=== PATIENT | female | born 1995 | race Hispanic/Latino ===

== ENCOUNTER 2018-07-02 01:23 | Emergency (ER) | payer OTHER ==
[~2018-07-02] VITALS: Ht 157.5 cm; Wt 63.5 kg
--- OUTSIDE RECORDS SUMMARY | 2018-07-02 01:26 | XMS REPORT | Summary of Care ---
Author Author [facility] provider scribe Summer Kotlik Organization [facility] provider scribe Summer Kotlik Address Unknown Phone Unavailable Encounter HQ Jhon(FIN) [id number] Date(s): 07/21/17 - 07/21/17 [facility] provider scribe Summer Kotlik [id number] [place], [place] [address] [phone] Discharge Disposition: Home or Self Care Attending Physician: Neri Lacy MD Vital Signs Most recent to 1 oldest [Reference Range]: Height 157.48 cm (07/21/17 5:05 PM) Blood Pressure 100/58 mmHg [90-140/60-90 mmHg] (07/21/17 5:05 PM) Peripheral Pulse 60 bpm Rate [60-100 bpm] (07/21/17 5:05 PM) Weight 64.545 kg (07/21/17 5:05 PM) Body Mass Index 26.03 m2 (07/21/17 5:05 PM) Problem List No data available for this section Allergies, Adverse Reactions, Alerts No data available for this section Medications No data available for this section Results No data available for this section Immunizations Given and Recorded Vaccine Date Status Refusal Reason human papillomavirus vaccine 07/21/17 Given human papillomavirus vaccine 05/20/17 Given Procedures No data available for this section Social History Social History Type Response Smoking Status Never smoker; Exposure to Tobacco Smoke None; Cigarette Smoking Last 365 Days No; Reg Smoking Cessation Counseling No entered on: 05/20/17 Assessment and Plan No data available for this section
--- OUTSIDE RECORDS SUMMARY | 2018-07-02 01:26 | XMS REPORT | Summary of Care ---
Author Author [facility] supplier engineer Summer [place] Organization [facility] supplier engineer Summer Cachil Dehe Address Unknown Phone Unavailable Encounter WILLEM Ferreira(FIN) [id number] Date(s): 10/17/17 - 10/18/17 [facility] supplier engineer Summer Cachil Dehe [address] [place] [phone] Vital Signs No data available for this section Problem List No data available for this section Allergies, Adverse Reactions, Alerts No data available for this section Medications NuvaRing 0.015 mg-0.120 mg vaginal ring 1 ea, VAG, q4wk, # 3 ea, 4 Refill(s), Pharmacy: [id number] Start Date: 10/18/17 Status: Ordered Results No data available for this section [...]
--- OUTSIDE RECORDS SUMMARY | 2018-07-02 01:26 | XMS REPORT | Continuity of Care Document ---
Author Author [facility] Interface Address Unknown Phone Unavailable Problems Problem Status Onset Date Classification Date Reported Comments Source Medications Medication Details Route Status Patient Instructions Ordering Provider Order Date Source 21 DAY Ethinyl Estradiol 0.518480 MG/HR / Etonogestrel 0.005 MG/HR Vaginal Ring [NuvaRing] 1 ea, VAG, q4wk, # 3 ea, 4 Refill(s), Pharmacy: [id number] Active 10/18/2017 [facility] 21 DAY Ethinyl Estradiol 0.630548 MG/HR / Etonogestrel 0.005 MG/HR Vaginal Ring [NuvaRing] 1 ea, VAG, q4wk, # 3 ea, 4 Refill(s) Active 05/20/2017 [facility] Depo-Provera 400 mg, IM, 0 Refill(s) Inactive 05/20/2017 [facility] Allergies, Adverse Reactions, Alerts Substance Category Reaction Severity Reaction type Status Date Reported Comments Source Immunizations Immunization Date Given Site Status Last Updated Comments Source human papillomavirus vaccine 07/21/2017 Left Deltoid completed [facility] human papillomavirus vaccine 05/20/2017 Right Deltoid completed [facility] Results Order Name Results Value Reference Range Date Interpretation Comments Source Vital Signs Vital Sign Value Date Comments Source Heart Rate 60 07/21/2017 [facility] Systolic (mm Hg) 100 07/21/2017 [facility] Diastolic (mm Hg) 58 07/21/2017 [facility] Weight 64.545 07/21/2017 [facility] BMI Calculated 26.03 07/21/2017 [facility] Height 157.48 cm 07/21/2017 Medical [facility] Heart Rate 80 05/20/2017 [facility] Weight 64.091 05/20/2017 [facility] BMI Calculated 25.84 05/20/2017 [facility] Systolic (mm Hg) 115 05/20/2017 Medical [facility] Diastolic (mm Hg) 68 05/20/2017 Medical [facility] Height 157.48 cm 05/20/2017 [facility] Encounters Location Location Details Encounter Type Encounter Number Reason For Visit Attending Provider ADM Date DC Date Status Source Outpatient [id number] SOO LACY 05/20/2017 Active 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
--- OUTSIDE RECORDS SUMMARY | 2018-07-02 01:26 | XMS REPORT | Summary of Care ---
Author Author [facility] gis coordinator Summer [employer] [employer] Organization [facility] gis coordinator Summer [employer] Address Unknown Phone Unavailable Encounter WILLEM Ferreira(SUMMER) [id number] Date(s): 05/20/17 - 05/20/17 [facility] gis coordinator Summer [employer] [id number] [place], [place] [address] [phone] Discharge Disposition: Home or Self Care Attending Physician: Neri Lacy MD Vital Signs Most recent to 1 oldest [Reference Range]: Height 157.48 cm (05/20/17 7:28 AM) Blood Pressure 115/68 mmHg [90-140/60-90 mmHg] (05/20/17 7:28 AM) Peripheral Pulse 80 bpm Rate [60-100 bpm] (05/20/17 7:28 AM) Weight 64.091 kg (05/20/17 7:28 AM) Body Mass Index 25.84 m2 (05/20/17 7:28 AM) Problem List No data available for this section Allergies, Adverse Reactions, Alerts No data available for this section Medications Depo-Provera 400 mg, IM, 0 Refill(s) Start Date: 05/20/17 Stop Date: 05/20/17 Status: Discontinued NuvaRing 0.015 mg-0.120 mg vaginal ring 1 ea, VAG, q4wk, # 3 ea, 4 Refill(s) Start Date: 05/20/17 Status: Ordered Results No data available for this section Immunizations Given and Recorded Vaccine Date Status Refusal Reason human papillomavirus vaccine 05/20/17 Given Procedures No data available for this section Social History Social History Type Response Smoking Status Never smoker; Exposure to Tobacco Smoke None; Cigarette Smoking Last 365 Days No; Reg Smoking Cessation Counseling No Assessment and Plan No data available for this section
--- NOTE | 2018-07-02 01:46 | NUR ---
3 SUTURES PLACED TO LACERATION BY ER MD, PT TOLERATED WELL
== END 2018-07-02 02:50 | disposition home or self-care (01) ==
LOC: ER 01:23
DX: S01.01XA Laceration without foreign body of scalp, initial encounter (principal); S00.03XA Contusion of scalp, initial encounter; Y92.008 Other place in unspecified non-institutional (private) residence as the place of occurrence of the external cause
CPT/HCPCS: 99283